=== PATIENT | female | born 1985 ===

== ENCOUNTER 2024-05-06 09:17 | Outpatient (CLI) | payer OTHER, SELFPAY ==
--- NOTE | ~2024-05-06 | MR_ITS ---
EXAMINATION: MR shoulder LT wo con DATE: 05/06/2024 10:08 INDICATION: Chronic left shoulder pain. TECHNIQUE: Magnetic resonance imaging (MRI) of the left shoulder was performed without intravenous co ntrast. Sequences included axial PD-weighted FS FSE, coronal oblique PD-weighted FS FSE and T2-weight ed FS FSE, and sagittal oblique T2-weighted FS FSE and T1-weighted FSE. COMPARISON: None. FINDINGS: Coracoacromial arch: The acromion undersurface is curved in morphology (type II). There is severe osteoarthritis of the ac romioclavicular joint with cortical remodeling and osteophytes. There is thickening and edema of the acromioclavicular joint capsule. There is mild subacromial/subdeltoid bursitis. Rotator cuff: There is mild supraspinatus tendinopathy. Teres minor tendon is normal. There is mild subscapularis t endinopathy. No tear. There is no asymmetric fatty atrophy of the rotator cuff muscle bellies. There is a 14 mm synovial cyst in the suprascapular notch and spinoglenoid notch. No muscle findings of den ervation. Biceps tendon and glenoid labrum: Biceps tendon is in bicipital groove. There is mild intra-articular biceps tendinopathy. There is deg eneration of the glenoid labrum without well-defined tear. Fluid: There is a small glenohumeral joint effusion. Bones/cartilage: Glenoid cartilage and humeral head cartilage are normal. IMPRESSION: 1. Severe acromioclavicular joint osteoarthritis. 2. Mild rotator cuff tendinopathy. No tear. 3. Mild subacromial/subdeltoid bursitis. 4. 14 mm synovial cyst in the suprascapular notch and spinoglenoid notch. No muscle findings of dener vation. 5. Mild intra-articular biceps tendinopathy. Reviewed, dictated and finalized at location A. IMPRESSION: 1. Severe acromioclavicular joint osteoarthritis. 2. Mild rotator cuff tendinopathy. No tear. 3. Mild subacromial/subdeltoid bursitis. 4. 14 mm synovial cyst in the suprascapular notch and spinoglenoid notch. No mu scle findings of denervation. 5. Mild intra-articular biceps tendinopathy.
== END 2024-05-06 09:18 ==
LOC: GOSHIMG 09:20
PROVIDERS: PCP Orthopaedic Surgery; Visit Provider Orthopaedic Surgery
DX: M19.012 Primary osteoarthritis, left shoulder (principal); M75.52 Bursitis of left shoulder; M71.312 Other bursal cyst, left shoulder; M75.22 Bicipital tendinitis, left shoulder; G89.29 Other chronic pain
CPT/HCPCS: 73221